=== PATIENT | male | born 1995 | race Caucasian/White ===

== ENCOUNTER 2019-04-01 13:16 | Observation (INO) ==
[2019-04-01] MEDS ORDERED: VANCOMYCIN 1,000 MG in 0.9 % SODIUM CHLORIDE 250 ML IV SCH (13:45)
[2019-04-01] MEDS ORDERED: cefTRIAXone 1 GM VIAL IV SCH (13:45)
--- NOTE | 2019-04-01 13:54 | XRay Report ---
CLINICAL INFORMATION:Preoperative evaluation TECHNIQUE: AP, portable semiupright chest x-ray COMPARISON: None FINDINGS:Lungs are negative. No parenchymal infiltrate or mass. No focal pulmonary parenchymal abnormality. Heart size and vascularity are normal. No pulmonary edema or pulmonary congestion. IMPRESSION: Negative AP chest x-ray Interpreted and Authenticated by: Joshua Claros 04/01/19
[2019-04-01 14:33] LABS: Basophils # (Auto) 0.03 K/mcL (0.00-0.30); Basophils % (Auto) 0.3 % (0.0-2.0); Eosinophils # (Auto) 0.02 K/mcL (0.00-0.70); Eosinophils % (Auto) 0.2 % (0.0-7.0); Granulocytes % (Auto) 72.9 % (38.0-78.0); Hemoglobin 17.5 g/dL (13.7-17.5); Lymphocytes # (Auto) 1.79 K/mcL (1.50-4.80); Lymphocytes % (Auto) 19.9 % (15.5-49.0); Mean Corpuscular HGB Conc 33.7 g/dL (31.0-36.0); Mean Platelet Volume 9.4 fL (7.4-10.4); Monocytes % (Auto) 6.7 % (1.0-12.0); Platelet Count 336 K/mcL (140-440); RBC 5.98 M/mcL (4.63-6.08); Red Cell Distribution Width 12.2 % (11.5-14.5)
[2019-04-01 14:47] LABS: Estimated Average Glucose(eAG) 108 mg/dL; Hemoglobin A1C 5.4 % HGB (4.0-6.0)
[2019-04-01 14:50] LABS: Prealbumin 31.1 mg/dl (20-40)
[2019-04-01 14:58] LABS: ALT/SGPT 46 U/l (0-40); AST/SGOT 31 U/l (0-37); Albumin 4.7 gm/dL (3.2-5.2); Albumin/Globulin Ratio 1.6 (1.0-2.3); Alkaline Phosphatase 104 U/L (39-117); Bilirubin,Total 0.6 mg/dL (0.0-1.0); Blood Urea Nitrogen 14 mg/dl (6-20); Calcium 9.7 mg/dl (8.6-10.4); Carbon Dioxide 22 mmol/L (22-30); Chloride 102 mmol/L (96-108); Glomerular Filtration Rate 105; Glucose 102 mg/dL (70-105); Thyroid Stimulating Hormone 1.26 uIU/ml (0.27-5.01)
[2019-04-01] MEDS ORDERED: MIDAZOLAM 2 MG/2 ML VIAL IV ONE (16:00)
[2019-04-01] MEDS ORDERED: KETAMINE 100 MG/ML ML IV ONE (16:00)
[2019-04-01] MEDS ORDERED: ROCURONIUM 10 MG/ML ML IV ONE (16:00)
[2019-04-01] MEDS ORDERED: PROPOFOL 200 MG/20 ML VIAL IV ONE (16:00)
[2019-04-01] MEDS ORDERED: SUGAMMADEX SODIUM 200 MG/2 ML VIAL IV ONE (16:00)
[2019-04-01] MEDS ORDERED: fentaNYL 100 MCG/2 ML VIAL IV ONE ×2 (16:00→18:23)
[2019-04-01] MEDS ORDERED: ONDANSETRON 4 MG/2 ML VIAL IV ONE (16:00)
[2019-04-01] MEDS ORDERED: DEXAMETHASONE 10 MG/ML VIAL IV ONE (16:00)
[2019-04-01] MEDS ORDERED: LIDOCAINE HCL/PF 100 MG/5 ML SYRINGE IV ONE (16:00)
[2019-04-01] MEDS ORDERED: SILVER SULFADIAZINE CREAM.TOP 25GM TOPICAL ONE (16:41)
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
[2019-04-01] MEDS ORDERED: ACETAMINOPHEN 325 MG TABLET PO PRN (17:35)
[2019-04-01] MEDS ORDERED: IPRATROPIUM/ALBUTEROL 3 ML AMPUL.NEB NEB PRN (18:19)
[2019-04-01] MEDS ORDERED: ATROPINE SULFATE 0.4 MG/ML VIAL IV PRN (18:19)
[2019-04-01] MEDS ORDERED: PROMETHAZINE 25 MG/ML VIAL IV PRN (18:19)
[2019-04-01] MEDS ORDERED: ACETAMINOPHEN 1,000 MG/100 ML BOTTLE IV ONE (18:19)
[2019-04-01] MEDS ORDERED: diphenhydrAMINE 50 MG/ML VIAL IV PRN (18:19)
[2019-04-01] MEDS ORDERED: ePHEDrine 50 MG/ML AMPUL IV PRN (18:19)
[2019-04-01] MEDS ORDERED: PROMETHAZINE 25 MG/ML VIAL IM PRN (18:19)
[2019-04-01] MEDS ORDERED: METHOCARBAMOL 1,000 MG/10 ML VIAL IV PRN (18:19)
[2019-04-01] MEDS ORDERED: HYDROmorphone 2 MG/ML VIAL IV PRN (18:19)
[2019-04-01] MEDS ORDERED: ONDANSETRON 4 MG/2 ML VIAL IV PRN (18:19)
[2019-04-01] MEDS: fentaNYL 100 MCG/2 ML VIAL IV PRN ×2 (18:22→18:32)
[2019-04-01] MEDS: ACETAMINOPHEN 325 MG TABLET PO PRN (21:04)
[2019-04-02] MEDS ORDERED: ACETAMINOPHEN 325 MG TABLET PO ONE (02:54)
[2019-04-02] MEDS: ACETAMINOPHEN 325 MG TABLET PO PRN ×3 (02:57→21:54)
[2019-04-02 07:29] LABS: Basophils # (Auto) 0 K/mcL (0.00-0.30); Basophils % (Auto) 0 % (0.0-2.0); Eosinophils # (Auto) 0 K/mcL (0.00-0.70); Eosinophils % (Auto) 0 % (0.0-7.0); Granulocytes % (Auto) 87.9 % (38.0-78.0); Hematocrit 49.3 % (40.1-51.0); Hemoglobin 16.6 g/dL (13.7-17.5); Lymphocytes # (Auto) 0.73 K/mcL (1.50-4.80); Lymphocytes % (Auto) 5.6 % (15.5-49.0); Mean Cell Volume 86.8 fL (80.0-100.0); Mean Corpuscular HGB Conc 33.7 g/dL (31.0-36.0); Mean Platelet Volume 9.6 fL (7.4-10.4); Monocytes # (Auto) 0.84 K/mcL (0.10-0.90); Monocytes % (Auto) 6.5 % (1.0-12.0); Platelet Count 330 K/mcL (140-440); RBC 5.68 M/mcL (4.63-6.08); Red Cell Distribution Width 12.1 % (11.5-14.5)
[2019-04-02 07:48] LABS: Blood Urea Nitrogen 13 mg/dl (6-20); Carbon Dioxide 23 mmol/L (22-30); Chloride 103 mmol/L (96-108); Glomerular Filtration Rate 125; Glucose 128 mg/dL (70-105)
[2019-04-02 08:41] LABS: Prealbumin 25.2 mg/dl (20-40)
--- NOTE | 2019-04-02 11:00 | General Surgery Progress Note ---
Subjective Patient reports: still having pain, no flatus, afebrile, other (Drainage breakthrough dressings around LEFT arm and forearm.) Narrative: Note initiated : 04/02/19 at 10:57 am Service Date, if different from initiated Date: [] Patient: Ilya Mccormack a 24 y/o M admitted on for Left Arm, Leg, Abdomen and Chest Wall Debridement. Chief Complaint: [] Objective Temp Pulse Resp BP Pulse Ox 98 F 84 16 132/82 98 04/02/19 08:00 04/02/19 08:00 04/02/19 08:00 04/02/19 08:00 04/02/19 08:00 AVSS. Well hydrated. Voided urine AIME; WNL L/E: Clear serous drainage of LEFT arm. Dressings REINFORCED. Labs: WBC 13 K Prealbumin and TSH Normal - Additional Data Intake & Output - Last 24 hours: Intake & Output 03/31/19 04/01/19 04/02/19 04/03/19 05:59 05:59 05:59 05:59 Intake Total 610 Output Total 1480 Balance -870 Weight 185 lb - Labs 04/02/19 06:13 04/02/19 06:13 Diabetes panel 04/01/19 04/02/19 Range/Units 13:45 06:13 Sodium 137 139 (133-145) mmol/L Potassium 3.9 4.0 (3.3-5.1) mmol/L Chloride 102 103 (96-108) mmol/L Carbon Dioxide 22 23 (22-30) mmol/L BUN 14 13 (6-20) mg/dl Creatinine 1.0 0.8 (0.7-1.2) mg/dl Glucose 102 128 H (70-105) mg/dL Hemoglobin A1c 5.4 (4.0-6.0) % HGB Calcium 9.7 (8.6-10.4) mg/dl AST 31 (0-37) U/l ALT 46 H (0-40) U/l Alkaline Phosphatase 104 (39-117) U/L Total Protein 7.7 (5.9-8.4) gm/dL Albumin 4.7 (3.2-5.2) gm/dL Thyroid panel 04/01/19 Range/Units 13:45 TSH 1.26 (0.27-5.01) uIU/ml Calcium panel 04/01/19 04/02/19 Range/Units 13:45 06:13 Calcium 9.7 (8.6-10.4) mg/dl Ionized Calcium Sharon 1.22 (1.16-1.32) mmol/L Albumin 4.7 (3.2-5.2) gm/dL Pituitary panel 04/01/19 04/02/19 Range/Units 13:45 06:13 Sodium 137 139 (133-145) mmol/L Potassium 3.9 4.0 (3.3-5.1) mmol/L Chloride 102 103 (96-108) mmol/L Carbon Dioxide 22 23 (22-30) mmol/L BUN 14 13 (6-20) mg/dl Creatinine 1.0 0.8 (0.7-1.2) mg/dl Glucose 102 128 H (70-105) mg/dL Calcium 9.7 (8.6-10.4) mg/dl TSH 1.26 (0.27-5.01) uIU/ml Adrenal panel 04/01/19 04/02/19 Range/Units 13:45 06:13 Sodium 137 139 (133-145) mmol/L Potassium 3.9 4.0 (3.3-5.1) mmol/L Chloride 102 103 (96-108) mmol/L Carbon Dioxide 22 23 (22-30) mmol/L BUN 14 13 (6-20) mg/dl Creatinine 1.0 0.8 (0.7-1.2) mg/dl Glucose 102 128 H (70-105) mg/dL Calcium 9.7 (8.6-10.4) mg/dl Total Bilirubin 0.6 (0.0-1.0) mg/dL AST 31 (0-37) U/l ALT 46 H (0-40) U/l Alkaline Phosphatase 104 (39-117) U/L Total Protein 7.7 (5.9-8.4) gm/dL Albumin 4.7 (3.2-5.2) gm/dL Assessment and Plan - Time Spent With Patient Total time spent is greater than 50% in coordination of care (as documented) at patient's floor/unit and/or counseling patient: Assessment: POD # 1. S/P Debridement of wallace. NOT ready for discharge. Will observe. Plan: FULL admit. Hospitalist consult for medial management PRN. 25 - 35 minutes
[2019-04-02] MEDS: HYDROcodone/APAP 10/325MG TABLET PO SCH ×2 (12:43→19:01)
[2019-04-02] MEDS: oxyCODONE/APAP 5/325MG TABLET PO PRN (20:43)
[2019-04-03] MEDS: HYDROcodone/APAP 10/325MG TABLET PO SCH ×5 (03:15→23:43)
[2019-04-03] MEDS: oxyCODONE/APAP 5/325MG TABLET PO PRN ×2 (07:45→14:23)
--- NOTE | 2019-04-03 11:40 | General Surgery Progress Note ---
Subjective Patient reports: feels better, pain is less, voiding w/o difficulty, no bowel movement, afebrile, other (Stiffness of Left elbow and shoulder. Bulky dressings LUE. ) Narrative: Note initiated : 04/03/19 at 11:37 am Service Date, if different from initiated Date: [] Patient: Ilya Mccormack 24 y/o M admitted on 04/02/19 for Left Arm, Leg, Abdomen and Chest Wall Debridement. Chief Complaint: [] Objective Temp Pulse Resp BP Pulse Ox 98 F 83 20 130/73 97 04/03/19 07:40 04/03/19 07:40 04/03/19 07:40 04/03/19 07:40 04/03/19 07:40 AVSS. AIME; No changes. Dressings CDI. No saturation CONSTIPATED. NO labs done today. - Additional Data Intake & Output - Last 24 hours: Intake & Output 04/01/19 04/02/19 04/03/19 04/04/19 05:59 05:59 05:59 05:59 Intake Total 610 1800 Output Total 1480 600 300 Balance -870 1200 -300 Weight 185 lb 185 lb - Labs 04/02/19 06:13 04/02/19 06:13 Assessment and Plan - Narrative A/P Narrative: Assessment: Slow and satisfactory progress. Constipated. No labs done today. Plan: Stool softeners. Check cbc / bmp in AM Dressing changes in AM. If progressing well, D/C home. Spoke at length with patient's mother. CG. - Time Spent With Patient Total time spent is greater than 50% in coordination of care (as documented) at patient's floor/unit and/or counseling patient: 15 - 24 minutes
[2019-04-03] MEDS: POLYETHYLENE GLYCOL 3350 17 GM PACKET PO SCH ×2 (17:08→21:00)
[2019-04-04] MEDS: HYDROcodone/APAP 10/325MG TABLET PO SCH (05:59)
[2019-04-04 06:34] LABS: Basophils # (Auto) 0.03 K/mcL (0.00-0.30); Basophils % (Auto) 0.4 % (0.0-2.0); Eosinophils # (Auto) 0.06 K/mcL (0.00-0.70); Eosinophils % (Auto) 0.8 % (0.0-7.0); Granulocytes % (Auto) 60.3 % (38.0-78.0); Hematocrit 44.7 % (40.1-51.0); Hemoglobin 14.8 g/dL (13.7-17.5); Lymphocytes # (Auto) 2.02 K/mcL (1.50-4.80); Lymphocytes % (Auto) 26.1 % (15.5-49.0); Mean Cell Volume 88.7 fL (80.0-100.0); Mean Corpuscular HGB Conc 33.1 g/dL (31.0-36.0); Mean Platelet Volume 9.7 fL (7.4-10.4); Monocytes # (Auto) 0.96 K/mcL (0.10-0.90); Monocytes % (Auto) 12.4 % (1.0-12.0); Platelet Count 262 K/mcL (140-440); RBC 5.04 M/mcL (4.63-6.08); Red Cell Distribution Width 12.6 % (11.5-14.5); WBC 7.7 K/mcL (4.50-11.00)
[2019-04-04 06:59] LABS: Blood Urea Nitrogen 10 mg/dl (6-20); Carbon Dioxide 26 mmol/L (22-30); Chloride 99 mmol/L (96-108); Glomerular Filtration Rate 132; Glucose 88 mg/dL (70-105)
[2019-04-04] MEDS: oxyCODONE/APAP 5/325MG TABLET PO PRN (07:53)
[2019-04-04] MEDS: POLYETHYLENE GLYCOL 3350 17 GM PACKET PO SCH (07:54)
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
[2019-04-04] MEDS ORDERED: SILVER SULFADIAZINE CREAM.TOP 25GM TOPICAL SCH (08:30)
[2019-04-04] MEDS ORDERED: SILVER SULFADIAZINE CREAM.TOP 400GM TOPICAL SCH (09:00)
--- NOTE | 2019-04-04 10:37 | General Surgery Progress Note ---
Subjective Patient reports: feels better, pain is less, bowel movement, afebrile, other (Ambulating well.) Narrative: Note initiated : 04/04/19 at 10:34 am Service Date, if different from initiated Date: [] Patient: Ilya Mccormack 24 y/o M admitted on 04/02/19 for Left Arm, Leg, Abdomen and Chest Wall Debridement. Chief Complaint: [] Objective Temp Pulse Resp BP Pulse Ox 98.8 F 82 18 125/76 94 04/04/19 07:07 04/04/19 07:07 04/04/19 08:00 04/04/19 07:07 04/04/19 08:00 AVSS. No changes AIME Primary dressings removed. Clean PINK / Granulating wounds. Wound care ordered reviewed. Patient examined with Eleanor CAMPBELL AND Marie, Patient's mother. - Additional Data Intake & Output - Last 24 hours: Intake & Output 04/02/19 04/03/19 04/04/19 04/05/19 05:59 05:59 05:59 05:59 Intake Total 610 1800 1590 Output Total 1517 179 3149 250 Balance -870 1200 -335 -250 Weight 185 lb 185 lb 186 lb 3.2 oz - Labs 04/04/19 04:51 04/04/19 04:51 Diabetes panel 04/04/19 Range/Units 04:51 Sodium 136 (133-145) mmol/L Potassium 3.8 (3.3-5.1) mmol/L Chloride 99 (96-108) mmol/L Carbon Dioxide 26 (22-30) mmol/L BUN 10 (6-20) mg/dl Creatinine 0.7 (0.7-1.2) mg/dl Glucose 88 (70-105) mg/dL Calcium panel 04/04/19 Range/Units 04:51 Ionized Calcium Sharon 1.20 (1.16-1.32) mmol/L Pituitary panel 04/04/19 Range/Units 04:51 Sodium 136 (133-145) mmol/L Potassium 3.8 (3.3-5.1) mmol/L Chloride 99 (96-108) mmol/L Carbon Dioxide 26 (22-30) mmol/L BUN 10 (6-20) mg/dl Creatinine 0.7 (0.7-1.2) mg/dl Glucose 88 (70-105) mg/dL Adrenal panel 04/04/19 Range/Units 04:51 Sodium 136 (133-145) mmol/L Potassium 3.8 (3.3-5.1) mmol/L Chloride 99 (96-108) mmol/L Carbon Dioxide 26 (22-30) mmol/L BUN 10 (6-20) mg/dl Creatinine 0.7 (0.7-1.2) mg/dl Glucose 88 (70-105) mg/dL Assessment and Plan - Narrative A/P Narrative: Assessment: Satisfactory progress. WBC is Normal. Labs reviewed. Wounds are healing well. NEEDS daily dressing changes in SDS. Bell: Daily cleansing of wounds and dressing changes. Patient and mother would prefer to come to [facility]. Wound care orders explained in detail, and entered IN [employer] by wound care nurse. F/u at wound care center in ONE week. OK for discharge when ready. - Time Spent With Patient Total time spent is greater than 50% in coordination of care (as documented) at patient's floor/unit and/or counseling patient: 25 - 35 minutes
[2019-04-04] MEDS: ACETAMINOPHEN 325 MG TABLET PO PRN (11:35)
[2019-04-04] MEDS ORDERED: traMADol 50 MG TABLET PO ONE (11:51)
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
== END 2019-04-04 14:15 | disposition home or self-care (01) ==
LOC: MEDSUR 13:16 → SUR 13:16 → MEDSUR 19:00
PROVIDERS: ADMIT Specialist; ATTEND Specialist